=== PATIENT | male | born 1960 | race Caucasian/White ===

== ENCOUNTER 2016-12-14 16:11 | Emergency (ER) | payer BC, MEDICAID ==
[~2016-12-14] VITALS: Ht 165.1 cm; Wt 80.0 kg
[~2016-12-14 16:11] MED LIST: CYCL-319 PO; HYDR-906 PO; IBUP-1542 PO
[2016-12-14 16:16] VITALS: Ht 165.1 cm; Wt 80.0 kg
[2016-12-14] MEDS ORDERED: IBUP-1542 PO (17:56)
[2016-12-14] MEDS ORDERED: CEPH-443 PO (17:56)
[2016-12-14] MEDS ORDERED: HC30CR25 TOP (17:57)
--- NOTE | 2016-12-14 18:10 | ERD ---
ER Documentation Chief Complaint Date/Time DATE: 12/14/16 TIME: 18:05 Chief Complaint pt bib self with c/o right arm "spider bite " last Wednesday, still has pain HPI This is a 56-year-old male that presents to the ER stating he was bitten by a spider 2 weeks ago. Patient has noticed that the area of redness has gotten bigger and area is now more painful. She was bitten to the right forearm. Pain is described as throbbing in nature, it is nonradiating. He has not tried anything. He has not had any fevers or chills. ROS 12 point review of systems was done, all negative except per HPI. Medications Home Meds Active Scripts Hydrocortisone* Topical (Hydrocortisone* Topical) 2.5%-28.3 Gm Cream..g., 1 APPLIC TOP BID, #1 TUB Prov:LEONEL DILLON 12/14/16 Ibuprofen* (Motrin*) 600 Mg Tab, 600 MG PO Q6, #30 TAB Prov:LEONEL DILLON Zeke 12/14/16 Cephalexin* (Keflex*) 500 Mg Capsule, 500 MG PO BID for 7 Days, CAP Prov:LEONEL DILLON Zeke 12/14/16 Cyclobenzaprine Hcl* (Cyclobenzaprine Hcl*) 10 Mg Tablet, 10 MG PO TID, #30 TAB Prov:NILE HENRY DO 11/12/14 Hydrocodone Bit-Acetaminophen ([place]) 5-325 Mg Tablet, 1 TAB PO Q4H Y for PAIN, #20 TAB Prov:NILE HENRY DO 11/12/14 Ibuprofen* (Motrin*) 600 Mg Tab, 600 MG PO Q6H Y for PAIN, #30 TAB Prov:NILE HENRY DO 11/12/14 Allergies Allergies: Coded Allergies: No Known Allergy (Unverified , 12/14/16) PMhx/Soc Hx Alcohol Use: Yes Hx Substance Use: No Hx Tobacco Use: No Physical Exam Vitals Vital Signs Date Time Temp Pulse Resp B/P Pulse Ox O2 Delivery O2 Flow Rate FiO2 12/14/16 16:16 98.7 74 16 160/96 99 Physical Exam Const: [] Head: Atraumatic . Resp: Clear to auscultation bilaterally Cardio: Regular rate and rhythm, no murmurs Skin: Area of erythema to the volar right mid forearm. no lymphatic streaking. sensation and movement is intact to the radial ulnar and median nerves. Ext: No cyanosis, or edema. patient has full and nonpainful range of motion of the right elbow and the right wrist. Neur: Awake and alert Psych: Normal Mood and Affect Procedures/MDM Differential Diagnosis: dermatitis, allergic urticaria, viral exanthem, insect bite, fungal infection ,viral exanthem, hand foot mouth disease, , impetigo, cellulitis, abscess, festus madhu syndrome, meningocemia, necrotizing fasciitis, myositis. Clinical suspicicion for necrotizing fasciitis or myositis is low. There are no skip lesions or pain away from the site of the rash. Clinical suspicion for festus madhu syndrome is low. There is not history new medication use or mucosal involvement. Patient's rash is likely cellulitis secondary to infected bug bite. Patient was sent home with Keflex, ibuprofen and hydrocortisone for itching. He needs to follow-up with his primary care doctor within 1-2 days or return to ER sooner if symptoms worsen. My medical decision making shared with the patient he understands and agrees with plan. Departure Diagnosis: Primary Impression: Bug bite Condition: Stable Patient Instructions: Insect Bites and Stings Additional Instructions: Llame al doctor MAANA y charisma jyoti ABDI PARA DENTRO DE 1-2 SHEPPARD.Dgale a la secretaria que nosotros le instruimos hacer esta abdi.Avise o llame si enriquez condicin se empeora antes de la abdi. Regresa aqui si peor o no mejor. LEONEL DILLON Dec 14, 2016 18:10
== END 2016-12-14 19:20 | disposition home or self-care (01) ==
LOC: FTE 16:11
DX: S40.861A Insect bite (nonvenomous) of right upper arm, initial encounter (principal); W57.XXXA Bitten or stung by nonvenomous insect and other nonvenomous arthropods, initial encounter; Y92.9 Unspecified place or not applicable
CPT/HCPCS: 99283

== ENCOUNTER 2017-02-05 14:33 | Emergency (ER) | payer BC, MEDICAID ==
[~2017-02-05] VITALS: Ht 165.1 cm; Wt 79.6 kg
[~2017-02-05 14:33] MED LIST changes: +CEPH-443 PO; +HC30CR25 TOP
[2017-02-05 14:46] VITALS: Ht 165.1 cm; Wt 79.6 kg
[2017-02-05] MEDS ORDERED: KETOROLAC 60 MG INJ IM STA (15:00)
[2017-02-05] MEDS ORDERED: DIAZEPAM 5 MG TAB PO ONE (15:00)
[2017-02-05] MEDS ORDERED: CARI350T PO ×2 (15:02→15:08)
[2017-02-05] MEDS ORDERED: IBUP800T25 PO (15:02)
--- NOTE | 2017-02-05 15:10 | ERD ---
ER Documentation Chief Complaint Chief Complaint Complains of back pain x 3 days HPI Is a 56-year-old male presenting to the emergency department complaining of bilateral lumbar back pain status post lifting heavy objects 3 days prior to being seen. Patient states that this has happened before. He states that he took ibuprofen 6:00 in the morning without any relief. Denies any saddle anesthesia, bladder or bowel incontinence ROS All systems reviewed and are negative except as per history of present illness. Medications Home Meds Active Scripts Carisoprodol* (Soma*) 350 Mg Tablet, 350 MG PO TID Y for MUSCLE SPASMS, #30 TAB Prov:MIHAELA DUNN PA-C 02/05/17 Ibuprofen* (Motrin*) 800 Mg Tab, 800 MG PO Q6H Y for PAIN AND OR ELEVATED TEMP, #30 TAB Prov:MIHAELA DUNN PA-C 02/05/17 Hydrocortisone* Topical (Hydrocortisone* Topical) 2.5%-28.3 Gm Cream..g., 1 APPLIC TOP BID, #1 TUB Prov:LEONEL DILLON 12/14/16 Ibuprofen* (Motrin*) 600 Mg Tab, 600 MG PO Q6, #30 TAB Prov:LEONEL DILLON 12/14/16 Cephalexin* (Keflex*) 500 Mg Capsule, 500 MG PO BID for 7 Days, CAP Prov:LEONEL DILLON 12/14/16 Cyclobenzaprine Hcl* (Cyclobenzaprine Hcl*) 10 Mg Tablet, 10 MG PO TID, #30 TAB Prov:NILE HENRY DO 11/12/14 Hydrocodone Bit-Acetaminophen ([place]) 5-325 Mg Tablet, 1 TAB PO Q4H Y for PAIN, #20 TAB Prov:NILE HENRY DO 11/12/14 Ibuprofen* (Motrin*) 600 Mg Tab, 600 MG PO Q6H Y for PAIN, #30 TAB Prov:NILE HENRY DO 11/12/14 Allergies Allergies: Coded Allergies: No Known Allergy (Unverified , 12/14/16) PMhx/Soc History of Surgery: Yes (right leg plate/screws ) Anesthesia Reaction: No Hx Miscellaneous Medical Probl: Yes (chronic back pain) Hx Alcohol Use: No Hx Substance Use: No Hx Tobacco Use: No Smoking Status: Never smoker Physical Exam Vitals Vital Signs Date Time Temp Pulse Resp B/P Pulse Ox O2 Delivery O2 Flow Rate FiO2 02/05/17 14:46 97.7 77 20 185/86 99 Physical Exam GENERAL: WD/WN, in no apparent distress, non-toxic appearing HENT: NC/AT EYES: Conjunctiva normal NECK: Supple PULM: Normal labored breathing CV: Good capillary refill GI: Non-distended, no guarding BACK: no deformities noted, normal spinal curvature, TTP on lumbar region, non- tender on spine midline, normal anal wink, EXT: No clubbing, cyanosis, or edema NEURO: Moves on all fours, sensation intact, normal gait SKIN: intact PSYCH: Normal mood Results 24 hrs Current Medications Medications (Trade) Dose Ordered Sig/Pat Route PRN Reason Start Time Stop Time Status Last Admin Dose Admin Diazepam (Valium) 10 mg ONCE ONCE PO 02/05/17 15:00 02/05/17 15:02 DC Ketorolac Tromethamine (Toradol) 60 mg ONCE STAT IM 02/05/17 15:00 02/05/17 15:02 DC Procedures/MDM This is a 56-year-old male presenting to the emergency department with signs and symptoms most consistent with a lumbar back strain status post lifting heavy object 3 days prior to being seen. No evidence of cauda equina, vertebral fracture. Patient appears well and neurovascular intact to be discharged home to follow-up with primary care physician. In the ED patient was given Toradol and Valium. He is given prescription for Soma and ibuprofen. Discussed return to the ER for any worsening symptoms. He understands and agrees with plan Departure Diagnosis: Primary Impression: Back pain Condition: Stable Patient Instructions: Back Pain (Acute Or Chronic) Referrals: NO PRIMARY,CARE PHYSICIAN (PCP) Additional Instructions: Visite a enriquez servando rodriguez para un EXAMEN.Regrese a estas instalaciones si no se mejora lashonda esperbamos o lashonda le dijimos. [place] toda la medicina venus y lashonda se le indic. Regrese a estas instalaciones si no se mejora lashonda esperbamos o lashonda le dijimos. La medicina que se le recet puede causarle sueo.NO DEBE MANEJAR NI OPERAR MAQUINARIAS PELIGROSAS mientras esta tomando esta medicina! MIHAELA DUNN PA-C Feb 05, 2017 15:10
== END 2017-02-05 16:10 | disposition home or self-care (01) ==
LOC: FTE 14:33
DX: M54.5 Low back pain (principal)
CPT/HCPCS: 96372; 99284; J1885